=== PATIENT | male | born 1990 | race Caucasian/White ===

== ENCOUNTER 2018-06-01 12:53 | Outpatient (CLI) | payer MEDICAID ==
[~2018-06-01 12:53] MED LIST: BUPR1TAB36 PO; [UNRECOGNIZED DRUG - OTHER] PO
== END 2018-06-01 23:59 | disposition home or self-care (01) ==
LOC: CARD DIAG 12:53
PROVIDERS: ATTEND Internal Medicine Interventional Cardiology
DX: I08.1 Rheumatic disorders of both mitral and tricuspid valves (principal); R06.02 Shortness of breath; I45.6 Pre-excitation syndrome; Z79.899 Other long term (current) drug therapy
CPT/HCPCS: 93306